=== PATIENT | female | born 1970 | race Two or more races ===

== ENCOUNTER 2024-11-28 15:37 | Emergency (ER) | payer MEDICAID, SELFPAY ==
[2024-11-28 15:37] VITALS: BMI 28.8
[2024-11-28 15:51] VITALS: BP 158/96; PULSE 82; RESP 18; TEMP 36.9; O2SAT 97
--- NOTE | 2024-11-28 15:59 | XR_ITS ---
EXAMINATION: Ankle, left 3 views . Technique: Ankle AP, oblique, lateral 3 views Date and time of exam: November 28, 2024 at 1633 hours INDICATIONS: Injury to the ankle today, ankle pain. FINDINGS: Prominent osteopenia No acute fracture No ankle dislocation IMPRESSION: No acute fracture
--- NOTE | 2024-11-28 16:04 | PD.EDLOWEX ---
Lower Extremity Injury RME/HPI General Chief Complaint: Extremity Injury, Lower Stated Complaint: Right ankle pain Time Seen by Provider: 11/28/24 16:11 Source: patient Arrival date/time: 11/28/24 15:37 54-year-old female with no known medical history presents to the emergency room with a chief complaint of pain and tenderness to the right ankle after hitting it against a toy 1 hour ago Mode of arrival: ambulatory Limitations: no limitations Related Data Home Medications ?Medication ?Instructions ?Recorded ?Confirmed montelukast 10 mg tablet 10 mg PO QPM 08/18/19 01/03/24 (Singulair) hydrochlorothiazide 25 mg tablet 25 mg PO QDAY 12/25/23 01/03/24 loratadine 10 mg tablet 10 mg PO QDAY 12/25/23 01/03/24 Previous Rx's ?Medication ?Instructions ?Recorded inhalational spacing device #1 ea 07/24/19 (Aerochamber MV spacer) acetaminophen 325 mg capsule 650 mg (2 x 325 mg) PO QID PRN 09/18/21 (Tylenol) fever or pain #30 caps albuterol sulfate 90 mcg/actuation 2 puff inhalation Q6H PRN cough / 10/12/22 aerosol inhaler wheezing #6.7 grams inhalational spacing device #1 ea 10/12/22 (Aerochamber MV spacer) hydroxyzine HCl 25 mg tablet 25 mg PO BID PRN anxiety #14 tabs 10/13/22 doxycycline hyclate 100 mg capsule 100 mg PO BID #14 caps 12/25/23 cephalexin 500 mg capsule 500 mg PO QID #28 caps 01/04/24 Allergies Allergy/AdvReac Type Severity Reaction Status Date / Time ibuprofen Allergy Severe rash Verified 10/12/22 12:38 tramadol Allergy Severe rash Verified 10/12/22 12:38 acetaminophen (From Tylenol) Allergy Rash Verified 01/03/24 20:24 Review of Systems Review of Systems Systems Reviewed: All systems reviewed, normal except as documented Constitutional Constitutional: Reports system reviewed and no additional complaints, except as documented, Denies fatigue, Denies fever(s), Denies headache(s) and Denies weakness Eyes Eyes: Reports system reviewed and no additional complaints, except as documented, Denies blurry vision and Denies change in vision ENT Ears, Nose, Mouth, and Throat: Reports system reviewed and no additional complaints, except as documented, Denies otalgia, Denies headache(s), Denies nasal congestion, Denies throat swelling and Denies vertigo Cardiovascular Cardiovascular: Reports system reviewed and no additional complaints, except as documented, Denies chest pain, Denies dyspnea and Denies dyspnea on exertion Respiratory Respiratory: Reports system reviewed and no additional complaints, except as documented, Denies chest congestion, Denies cough, Denies dyspnea, Denies dyspnea on exertion and Denies wheezing Gastrointestinal Gastrointestinal: Reports system reviewed and no additional complaints, except as documented, Denies abdominal pain, Denies cramping, Denies nausea and Denies vomiting Genitourinary Genitourinary: Reports system reviewed and no additional complaints, except as documented Musculoskeletal Musculoskeletal: Reports system reviewed and no additional complaints, except as documented, Reports abnormal gait, Reports arthralgias and Denies back pain Integumentary/Breasts Skin/Breast: Reports system reviewed and no additional complaints, except as documented and Denies wounds Neurologic Neurologic: Reports system reviewed and no additional complaints, except as documented, Reports abnormal gait, Denies confusion, Denies headache(s), Denies lack of coordination, Denies vertigo and Denies weakness Psychiatric Psychiatric: Reports system reviewed and no additional complaints, except as documented, Denies anxiety, Denies confusion, Denies depression, Denies paranoia, Denies suicidal ideation and Denies tactile hallucinations Endocrine Endocrine: Reports system reviewed and no additional complaints, except as documented and Denies fatigue Hematologic/Lymphatic Hematologic/Lymphatic: Reports system reviewed and no additional complaints, except as documented and Denies lymphadenopathy Allergic/Immunologic Allergic/Immunologic: Reports system reviewed and no additional complaints, except as documented, Denies throat swelling, Denies urticaria and Denies wheezing Past Medical History Past Medical History CARDIAC: Positive Hypertension; Negative Cardiac Disorders or Congestive Heart Failure RESPIRATORY: Positive Asthma; Negative Chronic Obstructive Pulmonary Disease (COPD) GENITOURINARY: Negative Renal Disease ENDOCRINE: Negative Diabetes Mellitus Type 1 or Diabetes Mellitus Type 2 HEMATOLOGIC: Negative Sickle Cell Disease PSYCHO/SOCIAL: Positive Anxiety Surgical History SURGICAL: Positive Tubal Ligation Social History SMOKING STATUS: Never smoker ED Exam General Limitations: Present no limitations General appearance: Present alert and in no apparent distress Head Head exam: Present atraumatic Eye Eye exam: Present normal appearance, PERRL and EOMI ENT ENT exam: Present normal exam, normal oropharynx and mucous membranes moist Neck Neck exam: Present normal inspection, full ROM and trachea midline Chest Chest inspection: Present normal inspection and symmetric chest wall rise Respiratory Respiratory exam: Present normal lung sounds bilaterally Cardiovascular Cardiovascular exam: Present regular rate, normal rhythm and normal heart sounds Abdominal Exam Abdominal exam: Present soft and normal bowel sounds Extremities Exam Extremities exam: Present normal inspection and full ROM Expanded Lower Extremity Exam Hip/Pelvis exam: Present normal inspection Upper leg exam: Present normal inspection Knee exam: Present normal inspection Lower leg exam: Present normal inspection Ankle exam: Present tenderness and swelling Foot/toe exam: Present normal inspection Gait: observed and normal Back Exam Back exam: Present normal inspection and full ROM Neurological Exam Neurological exam: Present alert, oriented X3 and CN II-XII intact Psychiatric Psychiatric exam: Present normal affect and normal mood Skin Skin exam: Present warm, dry, intact and normal color Course Quality Measures none Orders Category Date Time Status XR ankle comp LT min 3V Stat Exams 11/28/24 15:59 Completed Vital Signs Vital signs: Vital Signs Temperature 98.4 F 11/28/24 15:51 Pulse Rate 82 11/28/24 15:51 Respiratory Rate 18 11/28/24 15:51 Blood Pressure 158/96 H 11/28/24 15:51 Pulse Oximetry (%) 97 11/28/24 15:51 Oxygen Delivery Method Room Air 11/28/24 15:51 O2 saturation 97% within normal limits Extremity Injury, Lower MDM Narrative MDM Narrative:: 54-year-old female with no known medical history presents to the emergency room with a chief complaint of pain and tenderness to the right ankle after hitting it against a toy 1 hour ago Patient is hemodynamically stable and in no apparent distress Physical examination shows tenderness and mild swelling to the right ankle. X-ray of the right ankle was completed and was negative for any acute fracture or dislocation Patient was discharged and educated to follow-up with primary care provider in the next 24 to 48 hours and return to the emergency room for any evidence of worsening signs or symptoms Patient data External records reviewed:: [facility] previous records Clinical information provided by:: patient Social determinants that could affect healthcare access:: none Patient has the following chronic illnesses:: No chronic illness How is presenting disease/condition affected by chronic disease/condition?: no chronic disease Evaluation data The following diagnostics were reviewed and interpreted by me:: lab results and radiology exam(s) Lab and/or radiology exams considered but not ordered:: Labs and radiology exams considered and ordered Interpretation Summary: Ankle x-ray-no acute fracture or dislocation Medications / Prescriptions Medications or Prescriptions considered but not ordered:: No medication given Medication administrations:: No medication given Consultations Consultation(s) initiated? (list below): No Diagnosis Extremity Injury, Lower Differential Diagnosis: ankle sprain and strain and ankle fracture Most likely diagnosis given after review of the tests above:: Ankle sprain and strain Admission Indicated Admission indicated?: not indicated Admission Request Was there a request for admission?: No Disposition Plan Disposition Plan: Discharge Discharge Attestation Discharge Attestation: The patient and all family members were given an opportunity to ask questions and understood the discharge instructions. Discharge instructions specifically effects, indications for sooner follow up or return to the emergency department, and the expected course of current diagnosis. Patient condition: Stable Discharge Plan Plan Patient Disposition: HOME (Self Care) Disposition Comment: Stable Prescriptions/Referrals Prescriptions/Med Rec: No Action montelukast [Singulair] 10 mg tablet 10 mg PO QPM (DME) Aerochamber MV spacer See Dose Instructions .ROUTE .MEDSUPPLY Qty: 1 0RF Dose Instruction: As directed Rx Instructions: As directed acetaminophen [Tylenol] 325 mg capsule 650 mg PO QID PRN (Reason: fever or pain) Qty: 30 0RF cephalexin 500 mg capsule 500 mg PO QID Qty: 28 0RF albuterol sulfate 90 mcg/actuation HFA aerosol inhaler 2 puff INH Q6H PRN (Reason: cough / wheezing ) Qty: 6.7 0RF Rx Instructions: administer with spacer (DME) Aerochamber MV Spacer See Dose Instructions .ROUTE .MEDSUPPLY Qty: 1 0RF Dose Instruction: As directed Rx Instructions: As directed hydroxyzine HCl 25 mg tablet 25 mg PO BID PRN (Reason: anxiety) Qty: 14 0RF Rx Instructions: do not take medications and drive hydrochlorothiazide 25 mg Tablet 25 mg PO QDAY loratadine 10 mg Tablet 10 mg PO QDAY doxycycline hyclate 100 mg capsule 100 mg PO BID Qty: 14 0RF Referrals: No Primary/Family,Physician [Primary Care Provider] - In 1 week Problem List Clinical Impression: Ankle sprain and strain Patient/Caregiver Discharge Instructions Additional Instructions: Please follow-up with your primary care provider in the next 24 to 48 hours. X-ray of your ankle was completed and was negative for any acute fracture or dislocation For any evidence of worsening signs or symptoms return to the emergency room immediately Print Language: Tajik Stand Alone Forms: [employer]al Award Info., Patient Portal Info Letter PA/HAIRSPRING ADJUSTER Supervising Physician PA/ERIK Supervising Physician: Dr Ambrose
== END 2024-11-28 17:03 | disposition home or self-care (01) ==
PROVIDERS: Emergency Provider Emergency Medicine
DX: S93.402A Sprain of unspecified ligament of left ankle, initial encounter (principal); S96.912A Strain of unspecified muscle and tendon at ankle and foot level, left foot, initial encounter; W22.8XXA Striking against or struck by other objects, initial encounter
CPT/HCPCS: 73610; 99283

== ENCOUNTER 2024-12-07 13:31 | Emergency (ER) | payer MEDICAID, SELFPAY ==
[2024-12-07 13:32] VITALS: BMI 28.8
[2024-12-07 13:49] VITALS: BP 154/84; PULSE 89; RESP 19; TEMP 37.2; O2SAT 97
--- NOTE | 2024-12-07 13:59 | EKG_ITS ---
[facility] Test Date: 2024-12-07 Pat Name: ESTRELLA MCCOY Department: Room: - Gender: Female [employer]: : 1970 Requested By: Camilo Lainez Order Number: [id number] Reading MD: Camilo Lainez Measurements Intervals [place] Rate: 93 P: 41 [place]: 118 QRS: 29 QRSD: 84 T: 7 QT: 335 QTc: 417 Interpretive Statements SINUS RHYTHM WITH SHORT [place] INTERVAL MINIMAL ST DEPRESSION [0.025+ mV ST DEPRESSION] Compared to ECG 02/18/2019 12:00:46 ST (T wave) deviation now present Sinus tachycardia no longer present T-wave abnormality no longer present /store/[id number].pdf
--- NOTE | 2024-12-07 13:59 | XR_ITS ---
Examination: Abdomen sonogram, Limited Date and time of exam: December 07, 2024 1428 hours INDICATIONS: Abdomen sonogram August 19, 2019 cystic mass anterior to the pancreatic head 3.8 x 2.3 cm Technique: Real-time neri scale transabdominal sonographic images of the upper abdomen obtained. Findings: Normal gallbladder Normal common bile duct 0.3 cm Pancreatic head 2.3 cm Solid appearing mass anterior body of the pancreas 1.4 x 1.1 x 1.0 cm Liver 16 cm fatty infiltration focal probable fatty sparing 18 mm adjacent to the gallbladder Normal hepatopedal portal venous flow Patent IVC IMPRESSION: Recommend MRCP, MRI abdomen pre and post contrast follow-up to assess solid appearing mass anterior body of the pancreas described above
--- NOTE | 2024-12-07 14:00 | PD.EDRME ---
Rapid Medical Screening Exam [facility] Arrival date/time: 12/07/24 13:31 54-year-old female with no known medical history presents to the emergency room with a chief complaint of right upper quadrant abdominal pain, right sided chest pain x 1 day. Patient denies any nausea vomiting or fever. I have greeted and performed a focused initial assessment of this patient. A comprehensive ED assessment and evaluation of the patient, analysis of all test results, and completion of the medical decision making process will be conducted by additional ED providers. Chief Complaint: Abdominal Pain Vital signs: Vital Signs Temperature 99.0 F 12/07/24 13:49 Pulse Rate 89 12/07/24 13:49 Respiratory Rate 19 12/07/24 13:49 Blood Pressure 154/84 H 12/07/24 13:49 Pulse Oximetry (%) 97 12/07/24 13:49 Oxygen Delivery Method Room Air 12/07/24 13:49 Vital signs reviewed by provider: Yes
[2024-12-07 14:18] LABS: Basophils % (Auto) 0 % (0-2.5); Eosinophils # (Auto) 0.3 Thou/mm3 (0.0-0.5); Eosinophils % (Auto) 3 % (0-10); Hematocrit 40.3 % (36.0-46.0); Hemoglobin 13.9 g/dL (12.0-16.0); Immature Granulocytes % (Auto) 0 % (0-0); Immature Granulocytes Auto 0.03 Thou/mm3 (0.00-0.00); Lymphocytes # (Auto) 2.1 Thou/mm3 (1.0-4.8); Lymphocytes % (Auto) 23 % (10-50); Mean Corpuscular HGB Conc 34.5 g/dl (31.0-37.0); Mean Corpuscular Hemoglobin 30.3 pg (25.0-35.0); Mean Corpuscular Volume 88 fL (80-100); Monocytes # (Auto) 0.4 Thou/mm3 (0.0-0.8); Monocytes % (Auto) 5 % (0-12); Neutrophils # (Auto) 6.1 Thou/mm3 (1.8-7.7); Neutrophils % (Auto) 69 % (37-80); Nucleated Red Blood Cell % 0 /100 WBC (0); Platelet Count 286 Thou/mm3 (140-440); RDW Standard Deviation 41.1 fL (36.4-46.3); Red Blood Count 4.59 Miln/mm3 (4.00-5.20); White Blood Count 8.9 Thou/mm3 (3.6-11.0)
[2024-12-07 14:35] LABS: B-Type Natriuretic Peptide < 20 pg/mL (0-100)
[2024-12-07 14:37] LABS: Alanine Aminotransferase 17 U/L (10-49); Albumin, Serum 4.3 gm/dL (3.5-5.0); Albumin/Globulin Ratio 1.4 (1.2-2.2); Alkaline Phosphatase 63 U/L (46-116); Anion Gap 8 (7-16); Aspartate Amino Transferase 19 U/L (0-34); BUN/Creatinine Ratio 14 Ratio (12-20); Bilirubin,Total 0.4 mg/dL (0.3-1.2); Blood Urea Nitrogen 11 mg/dL (9-23); Calcium 9.3 mg/dL (8.3-10.6); Calcium (Corrected) 9.3 mg/dL (8.5-10.1); Chloride 102 mMol/L (98-107); Creatinine (Component) 0.8 mg/dL (0.6-1.3); Estimated Creatinine Clearance 75.6 mL/min (>60); Globulin 3.1 gm/dL (2.3-3.5); Glucose 144 mg/dL (74-106); Magnesium 1.8 mg/dL (1.6-2.6); Osmolality,Calculated 281 (275-295); Potassium 3.6 mMol/L (3.4-5.1); Sodium 140 mMol/L (136-145); Total Protein 7.4 gm/dL (5.7-8.2); Troponin I < 0.002 ng/mL (0.0-0.045); eGFR > 60 See Note
[2024-12-07 17:21] VITALS: BP 124/78; PULSE 88
--- NOTE | 2024-12-07 17:29 | PD.EDADULT ---
ED General RME/HPI General Chief complaint: Abdominal Pain Stated complaint: Right upper abdominal pain x 1 day Time Seen by Provider: 12/07/24 17:25 Arrival date/time: 12/07/24 13:31 CC: Right upper quadrant abdominal pain onset 24 hours ago. Currently the pain is gone. Patient denies any nausea vomiting headache shortness of breath difficulty breathing diarrhea. No left upper quadrant epigastric pain or lower abdominal pain. No prior history of similar events. Does not take any daily medications. RME / HPI RME / HPI narrative: 12/07/24 13:31 54-year-old female with no known medical history presents to the emergency room with a chief complaint of right upper quadrant abdominal pain, right sided chest pain x 1 day. Patient denies any nausea vomiting or fever. I have greeted and performed a focused initial assessment of this patient. A comprehensive ED assessment and evaluation of the patient, analysis of all test results, and completion of the medical decision making process will be conducted by additional ED providers. Related Data Home Medications ?Medication ?Instructions ?Recorded ?Confirmed montelukast 10 mg tablet 10 mg PO QPM 08/18/19 01/03/24 (Singulair) hydrochlorothiazide 25 mg tablet 25 mg PO QDAY 12/25/23 01/03/24 loratadine 10 mg tablet 10 mg PO QDAY 12/25/23 01/03/24 Previous Rx's ?Medication ?Instructions ?Recorded inhalational spacing device #1 ea 07/24/19 (Aerochamber MV spacer) acetaminophen 325 mg capsule 650 mg (2 x 325 mg) PO QID PRN 09/18/21 (Tylenol) fever or pain #30 caps albuterol sulfate 90 mcg/actuation 2 puff inhalation Q6H PRN cough / 10/12/22 aerosol inhaler wheezing #6.7 grams inhalational spacing device #1 ea 10/12/22 (Aerochamber MV spacer) hydroxyzine HCl 25 mg tablet 25 mg PO BID PRN anxiety #14 tabs 10/13/22 doxycycline hyclate 100 mg capsule 100 mg PO BID #14 caps 12/25/23 cephalexin 500 mg capsule 500 mg PO QID #28 caps 01/04/24 Allergies Allergy/AdvReac Type Severity Reaction Status Date / Time ibuprofen Allergy Severe rash Verified 10/12/22 12:38 tramadol Allergy Severe rash Verified 10/12/22 12:38 acetaminophen (From Tylenol) Allergy Rash Verified 01/03/24 20:24 Review of Systems Review of Systems Narrative Review of Systems: GEN: No fever, no chills, no weight loss EYES: No discharge, no visual changes, no pain HEENT: No ear pain, no congestion, no sore throat PULM: No shortness of breath, no cough, no congestion CV: No chest pain, no dyspnea on exertion, no palpitations GI: No nausea, no vomiting, no diarrhea, + pain, no constipation : No frequency, no urgency, no dysuria MUSC/SKEL: No joint pain, no back pain SKIN: No rash PSYCH: No hallucinations, no depression HEME/LYMPH: No easy bleeding or bruising tendencies NEURO: No weakness, no headache Past Medical History Past Medical History CARDIAC: Positive Hypertension; Negative Cardiac Disorders or Congestive Heart Failure RESPIRATORY: Positive Asthma; Negative Chronic Obstructive Pulmonary Disease (COPD) GENITOURINARY: Negative Renal Disease ENDOCRINE: Negative Diabetes Mellitus Type 1 or Diabetes Mellitus Type 2 HEMATOLOGIC: Negative Sickle Cell Disease PSYCHO/SOCIAL: Positive Anxiety Surgical History SURGICAL: Positive Tubal Ligation Social History SMOKING STATUS: Never smoker ED Exam Narrative Physical exam: [General: Not in any acute distress Head normocephalic HEENT: Within acceptable limits Neck is supple nontender Chest equal chest rise nontender to palpation Respiratory: Clear to auscultation no wheezes crackles or rubs CV: Rate rhythm is regular no murmurs rubs or clicks Abdomen is distended secondary to body habitus soft nontender in all 4 quads including the epigastrium. This includes with deep palpation no reflexive guarding or rebound tenderness. Back: No CVA tenderness no spinous process tenderness from cervical spine thoracic and lumbar spine Skin: Intact no petechiae rash induration ulceration or crepitus Extremities: Moving all extremity against resistance cap refill less than 2 seconds neurosensory intact Neuro: Awake alert oriented x3 Glascow coma 15 no focal deficits] Course Quality Measures none Orders Category Date Time Status EKG (ED ONLY) *Do not use* NOW Care 12/07/24 13:59 Completed EKG (ED Only) Stat Exams 12/07/24 13:59 Draft US gall bladder Stat Exams 12/07/24 13:59 Completed B-Type Natriuretic Peptide Stat Lab 12/07/24 14:05 Completed CBC Stat Lab 12/07/24 14:05 Completed Comprehensive Metabolic Panel Stat Lab 12/07/24 14:05 Completed Lipase Stat Lab 12/07/24 14:05 Completed Magnesium Stat Lab 12/07/24 14:05 Completed Troponin I Stat Lab 12/07/24 14:05 Completed Vital Signs Vital signs: Vital Signs Temperature 99.0 F 12/07/24 13:49 Pulse Rate 89 12/07/24 13:49 Respiratory Rate 19 12/07/24 13:49 Blood Pressure 154/84 H 12/07/24 13:49 Pulse Oximetry (%) 97 12/07/24 13:49 Oxygen Delivery Method Room Air 12/07/24 13:49 MDM Patient data External records reviewed:: [facility] previous records Clinical information provided by:: patient Social determinants that could affect healthcare access:: none Patient has the following chronic illnesses:: None How is presenting disease/condition affected by chronic disease/condition?: uneffected by Evaluation data The following diagnostics were reviewed and interpreted by me:: lab results and radiology exam(s) Lab and/or radiology exams considered but not ordered:: CBC shows no acute leukocytosis anemia thrombocytopenia CMP shows no acute electrolyte imbalances renal impairment transaminitis or T. bili elevation EKG performed at 1413 shows a ventricular rate of 93 CT interval 118 QRS of 8 4 QTc of 386 is sinus rhythm. Ultrasound of the gall bladder shows gallbladder is normal however there is a pancreatic mass. Interpretation Summary: Patient is advised of the pancreatic mass and is recommended an outpatient MRCP. The patient is afebrile nontoxic-appearing with normal vital signs this patient can be done on outpatient basis. Patient advised if there is worsening of symptoms including epigastric or left upper quadrant pain to return immediately to the emergency room for reevaluation. Medications Medications considered but not ordered:: None Medication administrations:: None Consultations Consultation(s) initiated? (list below): No Diagnosis Differential Diagnosis ED Complaint MDM: Cholelithiasis cholecystitis choledocholithiasis Most likely diagnosis given after review of the tests above:: Right upper quadrant abdominal pain Admission Indicated Admission indicated?: not indicated Explain why admission is indicated or not indicated:: Stable for discharge Admission Request Was there a request for admission?: No Disposition Plan Disposition Plan: Discharge Discharge Attestation Discharge Attestation: The patient and all family members were given an opportunity to ask questions and understood the discharge instructions. Discharge instructions specifically effects, indications for sooner follow up or return to the emergency department, and the expected course of current diagnosis. Patient condition: Stable Medical Decision Making Differential Diagnosis Differential Diagnosis: Cholelithiasis cholecystitis choledocholithiasis Lab Data 12/07/24 14:05 12/07/24 14:05 Labs: Lab Results 12/07/24 Range/Units 14:05 WBC 8.9 (3.6-11.0) Thou/mm3 RBC 4.59 (4.00-5.20) Miln/mm3 Hgb 13.9 (12.0-16.0) g/dL Hct 40.3 (36.0-46.0) % MCV 88 (80-100) fL MCH 30.3 (25.0-35.0) pg MCHC 34.5 (31.0-37.0) g/dl RDW Std Deviation 41.1 (36.4-46.3) fL Plt Count 286 (140-440) Thou/mm3 Neut % (Auto) 69 (37-80) % Lymph % (Auto) 23 (10-50) % [place]lee % (Auto) 5 (0-12) % Eos % (Auto) 3 (0-10) % Baso % (Auto) 0 (0-2.5) % Neut # (Auto) 6.1 (1.8-7.7) Thou/mm3 Lymph # (Auto) 2.1 (1.0-4.8) Thou/mm3 Greenlee # (Auto) 0.4 (0.0-0.8) Thou/mm3 Eos # (Auto) 0.3 (0.0-0.5) Thou/mm3 Baso # (Auto) 0.0 (0.0-0.2) Thou/mm3 Immature Gran # (Auto) 0.03 H (0.00-0.00) Thou/mm3 Absolute Nucleated RBC 0.00 (0.00-0.00) Thou/mm3 Immature Gran % 0 (0-0) % Nucleated RBC % 0 (0) /100 WBC Sodium 140 (136-145) mMol/L Potassium 3.6 (3.4-5.1) mMol/L Chloride 102 (98-107) mMol/L Carbon Dioxide 30.0 (20.0-31.0) mMol/L Anion Gap 8 (7-16) BUN 11 (9-23) mg/dL Creatinine 0.8 (0.6-1.3) mg/dL Estim Creat Clear Calc 75.6 (>60) mL/min eGFR > 60 (60 - ) See Note BUN/Creatinine Ratio 14 (12-20) Ratio Glucose 144 H (74-106) mg/dL Calculated Osmolality 281 (275-295) Calcium 9.3 (8.3-10.6) mg/dL Corrected Calcium 9.3 (8.5-10.1) mg/dL Magnesium 1.8 (1.6-2.6) mg/dL Total Bilirubin 0.4 (0.3-1.2) mg/dL AST 19 (0-34) U/L ALT 17 (10-49) U/L Alkaline Phosphatase 63 (46-116) U/L Troponin I < 0.002 (0.0-0.045) ng/mL B-Natriuretic Peptide < 20 (0-100) pg/mL Total Protein 7.4 (5.7-8.2) gm/dL Albumin 4.3 (3.5-5.0) gm/dL Globulin 3.1 (2.3-3.5) gm/dL Albumin/Globulin Ratio 1.4 (1.2-2.2) Lipase 28 (12-53) U/L Discharge Plan Plan Patient Disposition: HOME (Self Care) Patient condition on transfer: Stable Prescriptions/Referrals Prescriptions/Med Rec: No Action montelukast [Singulair] 10 mg tablet 10 mg PO QPM (DME) Aerochamber MV spacer See Dose Instructions .ROUTE .MEDSUPPLY Qty: 1 0RF Dose Instruction: As directed Rx Instructions: As directed acetaminophen [Tylenol] 325 mg capsule 650 mg PO QID PRN (Reason: fever or pain) Qty: 30 0RF cephalexin 500 mg capsule 500 mg PO QID Qty: 28 0RF albuterol sulfate 90 mcg/actuation HFA aerosol inhaler 2 puff INH Q6H PRN (Reason: cough / wheezing ) Qty: 6.7 0RF Rx Instructions: administer with spacer (DME) Aerochamber MV Spacer See Dose Instructions .ROUTE .MEDSUPPLY Qty: 1 0RF Dose Instruction: As directed Rx Instructions: As directed hydroxyzine HCl 25 mg tablet 25 mg PO BID PRN (Reason: anxiety) Qty: 14 0RF Rx Instructions: do not take medications and drive hydrochlorothiazide 25 mg Tablet 25 mg PO QDAY loratadine 10 mg Tablet 10 mg PO QDAY doxycycline hyclate 100 mg capsule 100 mg PO BID Qty: 14 0RF Referrals: Josue Brown MD [Primary Care Provider] - In 1 week Problem List Clinical Impression: Right upper quadrant abdominal pain, Mass of pancreas Impression comment: Please follow-up with your primary care provider and you need an MRCP on an outpatient basis. If there is a worsening of pain or pain in the left upper quadrant return immediately to the emergency room for reevaluation. Patient/Caregiver Discharge Instructions Other Activity Instructions:: See spicy or fatty foods for the next 7 to 10 days. Take ibuprofen or Tylenol as needed. Please follow-up with your primary care provider you need an MR CP to determine what that pancreatic mass is that you have. Education Materials: Abdominal Pain Print Language: Ugandan Stand Alone Forms: [employer]al Award Info., Work/School Release, Patient Portal Info Letter OWEN/ERIK Supervising Physician OWEN/FARM EQUIPMENT MECHANIC APPRENTICE Supervising Physician: Javed Miller ENP
[2024-12-07 18:20] LABS: Lipase 28 U/L (12-53)
== END 2024-12-07 17:49 | disposition home or self-care (01) ==
PROVIDERS: Nurse Practitioner Family; Registered Nurse General Practice; Emergency Provider Emergency Medicine; PCP Family Medicine
DX: R10.11 Right upper quadrant pain (principal)
CPT/HCPCS: 36415; 76705; 80053; 83690; 83735; 83880; 84484; 85025; 93005; 99283

== ENCOUNTER 2025-02-22 11:52 | Emergency (ER) | payer MEDICAID, SELFPAY ==
[2025-02-22 12:06] VITALS: BP 167/86; PULSE 106; RESP 18; TEMP 38.1; O2SAT 97; BMI 28.8
--- NOTE | 2025-02-22 12:18 | XR_ITS ---
Examination: PA lateral chest 2 views TECHNIQUE: Upright PA lateral chest 2 views Date and time: February 22, 2025 1232 hours Comparison February 02, 2024 INDICATIONS: Coughing chest pain 3 days. FINDINGS: Normal heart size No lobar pneumonia or pulmonary edema The osseous structures are intact IMPRESSION: No pneumonia or pulmonary edema
--- NOTE | 2025-02-22 13:29 | PD.EDURI ---
Upper Respiratory Inf. RME/HPI General Chief Complaint: Shortness of Breath/Dyspnea Stated Complaint: SOB, vomiting, has asthma, cough X 3 days Time Seen by Provider: 02/22/25 12:17 Arrival date/time: 02/22/25 11:52 54-year-old female with multiple sick contacts at home presents emergency department today for complaints of cough, congestion runny nose and generalized bodyaches ongoing x 3 days Limitations: no limitations Related Data Home Medications ?Medication ?Instructions ?Recorded ?Confirmed montelukast 10 mg tablet 10 mg PO QPM 08/18/19 01/03/24 (Singulair) hydrochlorothiazide 25 mg tablet 25 mg PO QDAY 12/25/23 01/03/24 loratadine 10 mg tablet 10 mg PO QDAY 12/25/23 01/03/24 Previous Rx's ?Medication ?Instructions ?Recorded inhalational spacing device #1 ea 07/24/19 (Aerochamber MV spacer) acetaminophen 325 mg capsule 650 mg (2 x 325 mg) PO QID PRN 09/18/21 (Tylenol) fever or pain #30 caps albuterol sulfate 90 mcg/actuation 2 puff inhalation Q6H PRN cough / 10/12/22 aerosol inhaler wheezing #6.7 grams inhalational spacing device #1 ea 10/12/22 (Aerochamber MV spacer) hydroxyzine HCl 25 mg tablet 25 mg PO BID PRN anxiety #14 tabs 10/13/22 doxycycline hyclate 100 mg capsule 100 mg PO BID #14 caps 12/25/23 cephalexin 500 mg capsule 500 mg PO QID #28 caps 01/04/24 albuterol sulfate 90 mcg/actuation 2 puff inhalation Q6H PRN 02/22/25 aerosol inhaler (Ventolin HFA) shortness of breath or wheezing #8.5 grams benzonatate 100 mg capsule 100 mg PO TID #14 caps 02/22/25 prednisone 20 mg tablet 20 mg PO BID 3 days #6 tabs 02/22/25 Allergies Allergy/AdvReac Type Severity Reaction Status Date / Time ibuprofen Allergy Severe rash Verified 02/22/25 11:56 tramadol Allergy Severe rash Verified 02/22/25 11:56 acetaminophen (From Tylenol) Allergy Rash Verified 02/22/25 11:56 Review of Systems Review of Systems Systems Reviewed: All systems reviewed, normal except as documented Constitutional Constitutional: Reports system reviewed and no additional complaints, except as documented, Reports body ache(s), Reports chills, Reports fever(s) and Reports headache(s) Eyes Eyes: Reports system reviewed and no additional complaints, except as documented and Denies blurry vision ENT Ears, Nose, Mouth, and Throat: Reports system reviewed and no additional complaints, except as documented, Reports headache(s), Reports nasal congestion and Reports nasal discharge Cardiovascular Cardiovascular: Reports system reviewed and no additional complaints, except as documented, Denies chest pain and Denies dyspnea Respiratory Respiratory: Reports system reviewed and no additional complaints, except as documented, Reports chest congestion, Reports cough and Denies dyspnea Gastrointestinal Gastrointestinal: Reports system reviewed and no additional complaints, except as documented and Denies abdominal pain Genitourinary Genitourinary: Reports system reviewed and no additional complaints, except as documented and Reports as per HPI Integumentary/Breasts Skin/Breast: Reports system reviewed and no additional complaints, except as documented and Denies rash Neurologic Neurologic: Reports system reviewed and no additional complaints, except as documented, Reports as per HPI and Reports headache(s) Past Medical History Past Medical History CARDIAC: Positive Hypertension; Negative Cardiac Disorders or Congestive Heart Failure RESPIRATORY: Positive Asthma; Negative Chronic Obstructive Pulmonary Disease (COPD) GENITOURINARY: Negative Renal Disease ENDOCRINE: Negative Diabetes Mellitus Type 1 or Diabetes Mellitus Type 2 HEMATOLOGIC: Negative Sickle Cell Disease PSYCHO/SOCIAL: Positive Anxiety Surgical History SURGICAL: Positive Tubal Ligation Social History SMOKING STATUS: Never smoker ED Exam General Limitations: Present no limitations General appearance: Present alert and in no apparent distress Head Head exam: Present atraumatic, normocephalic and normal inspection Eye Eye exam: Present normal appearance, PERRL and EOMI; Absent conjunctival injection ENT ENT exam: Present normal exam, normal oropharynx and mucous membranes moist Neck Neck exam: Present normal inspection, full ROM and trachea midline Chest Chest inspection: Present normal inspection and symmetric chest wall rise Respiratory Respiratory exam: Present normal lung sounds bilaterally; Absent respiratory distress Cardiovascular Cardiovascular exam: Present regular rate, normal rhythm and normal heart sounds Abdominal Exam Abdominal exam: Present soft and normal bowel sounds; Absent distention, tenderness, guarding, rebound or rigidity Extremities Exam Extremities exam: Present normal inspection and full ROM Back Exam Back exam: Present normal inspection and full ROM Neurological Exam Neurological exam: Present alert, oriented X3 and CN II-XII intact Psychiatric Psychiatric exam: Present normal affect and normal mood Skin Skin exam: Present warm, dry, intact and normal color Course Quality Measures none Orders Category Date Time Status Bedside Influenza A&B Antigen Test NOW Care 02/22/25 12:18 Completed XR chest 2V Stat Exams 02/22/25 12:18 Completed Ibuprofen Tab [Motrin Tab] Med 02/22/25 12:18 Discontinued 800 mg PO X1 ONE Vital Signs Vital signs: Vital Signs Temperature 100.5 F H 02/22/25 12:06 Pulse Rate 106 H 02/22/25 12:06 Respiratory Rate 18 02/22/25 12:06 Blood Pressure 167/86 H 02/22/25 12:06 Pulse Oximetry (%) 97 02/22/25 12:06 Oxygen Delivery Method Room Air 02/22/25 12:06 O2 saturation 97% room air within normal Upper Respiratory Infection MDM Narrative MDM Narrative:: 54-year-old female with multiple sick contacts at home presents emergency department today for complaints of cough, congestion runny nose and generalized bodyaches ongoing x 3 days On exam patient well-appearing patient does not appear ill or toxic in no acute distress Chest x-ray obtained no acute emergent findings noted Patient checked for influenza which came back negative Symptoms highly consistent with viral illness Patient declined ibuprofen and Tylenol Patient discharged home in no distress to follow-up with primary care doctor in the next 24 to 48 hours and for any worsening symptoms to return to the ER immediately Patient data External records reviewed:: [facility] previous records Clinical information provided by:: patient Social determinants that could affect healthcare access:: none Patient has the following chronic illnesses:: See history How is presenting disease/condition affected by chronic disease/condition?: exacerbated by Evaluation data The following diagnostics were reviewed and interpreted by me:: lab results and radiology exam(s) Lab and/or radiology exams considered but not ordered:: Labs and radiology obtain Interpretation Summary: Reviewed by me Medications / Prescriptions Medications or Prescriptions considered but not ordered:: Given Medication administrations:: Medication Administration History Discontinued Medications Ibuprofen (Ibuprofen Tab 400 Mg Tablet) 800 mg PO X1 ONE Stop: 02/22/25 12:19 Last Admin: 02/22/25 13:39 Dose: Not Given Documented By: ER Non-Admin Reason: Patient Refused Given Consultations Consultation(s) initiated? (list below): No Diagnosis Upper Respiratory Differential Diagnosis: upper respiratory infection, viral infection and bronchitis Most likely diagnosis given after review of the tests above:: URI Admission Indicated Admission indicated?: not indicated Admission Request Was there a request for admission?: No Disposition Plan Disposition Plan: Discharge Discharge Attestation Discharge Attestation: The patient and all family members were given an opportunity to ask questions and understood the discharge instructions. Discharge instructions specifically effects, indications for sooner follow up or return to the emergency department, and the expected course of current diagnosis. Patient condition: Stable Discharge Plan Plan Patient Disposition: HOME (Self Care) Discharge Disposition comment: Stable Prescriptions/Referrals Prescriptions/Med Rec: New prednisone 20 mg tablet 20 mg PO BID 3 Days Qty: 6 0RF benzonatate 100 mg capsule 100 mg PO TID Qty: 14 0RF albuterol sulfate [Ventolin HFA] 90 mcg/actuation HFA aerosol inhaler 2 puff inhalation Q6H PRN (Reason: shortness of breath or wheezing) Qty: 8.5 0RF No Action montelukast [Singulair] 10 mg tablet 10 mg PO QPM (DME) Aerochamber MV spacer See Dose Instructions .ROUTE .MEDSUPPLY Qty: 1 0RF Dose Instruction: As directed Rx Instructions: As directed acetaminophen [Tylenol] 325 mg capsule 650 mg PO QID PRN (Reason: fever or pain) Qty: 30 0RF cephalexin 500 mg capsule 500 mg PO QID Qty: 28 0RF albuterol sulfate 90 mcg/actuation HFA aerosol inhaler 2 puff INH Q6H PRN (Reason: cough / wheezing ) Qty: 6.7 0RF Rx Instructions: administer with spacer (DME) Aerochamber MV Spacer See Dose Instructions .ROUTE .MEDSUPPLY Qty: 1 0RF Dose Instruction: As directed Rx Instructions: As directed hydroxyzine HCl 25 mg tablet 25 mg PO BID PRN (Reason: anxiety) Qty: 14 0RF Rx Instructions: do not take medications and drive hydrochlorothiazide 25 mg Tablet 25 mg PO QDAY loratadine 10 mg Tablet 10 mg PO QDAY doxycycline hyclate 100 mg capsule 100 mg PO BID Qty: 14 0RF Referrals: Roel Bella PA-C [Primary Care Provider] - In 1 week Problem List Clinical Impression: Acute upper respiratory infection Patient/Caregiver Discharge Instructions Education Materials: Preventing Common Respiratory ... Additional Instructions: Please follow up with your primary care doctor in the next 24-48hrs for any worsening symptoms return here immediately Print Language: Belarusian Stand Alone Forms: [employer] Work/School Release, Patient Portal Info Letter PA/DISTILLERY SUPERVISOR Supervising Physician PA/DISTILLERY SUPERVISOR Supervising Physician: Dr blackwell
== END 2025-02-22 15:17 | disposition home or self-care (01) ==
PROVIDERS: Emergency Provider Emergency Medicine; PCP Physician Assistant
DX: J06.9 Acute upper respiratory infection, unspecified (principal)
CPT/HCPCS: 71046; 87400; 99283

== ENCOUNTER 2025-02-25 17:31 | Emergency (ER) | payer MEDICAID, SELFPAY ==
[2025-02-25 17:32] VITALS: BMI 28.8
[2025-02-25 17:52] VITALS: BP 155/83; PULSE 75; RESP 18; TEMP 37.4; O2SAT 96
--- NOTE | 2025-02-25 18:18 | PD.EDSOB ---
ED SOB =RME/HPI General Chief Complaint: Shortness of Breath/Dyspnea Stated Complaint: DIFFICULTY BREATHING Time Seen by Provider: 02/25/25 18:07 Arrival date/time: 02/25/25 17:31 RME / HPI RME / HPI Narrative: 54 year old female presents to the ED with a complaint of cough with white sputum. She denies fever or chills, ear pain or sore throat. She denies nausea or vomiting. She completed the course of prednisone but states the cough medication is not helping much. She was unable to orange picker the albuterol inhaler because it was not time for renewal. Related Data Home Medications ?Medication ?Instructions ?Recorded ?Confirmed montelukast 10 mg tablet 10 mg PO QPM 08/18/19 01/03/24 (Singulair) hydrochlorothiazide 25 mg tablet 25 mg PO QDAY 12/25/23 01/03/24 loratadine 10 mg tablet 10 mg PO QDAY 12/25/23 01/03/24 Previous Rx's ?Medication ?Instructions ?Recorded inhalational spacing device #1 ea 07/24/19 (Aerochamber MV spacer) acetaminophen 325 mg capsule 650 mg (2 x 325 mg) PO QID PRN 09/18/21 (Tylenol) fever or pain #30 caps albuterol sulfate 90 mcg/actuation 2 puff inhalation Q6H PRN cough / 10/12/22 aerosol inhaler wheezing #6.7 grams inhalational spacing device #1 ea 10/12/22 (Aerochamber MV spacer) hydroxyzine HCl 25 mg tablet 25 mg PO BID PRN anxiety #14 tabs 10/13/22 doxycycline hyclate 100 mg capsule 100 mg PO BID #14 caps 12/25/23 cephalexin 500 mg capsule 500 mg PO QID #28 caps 01/04/24 albuterol sulfate 90 mcg/actuation 2 puff inhalation Q6H PRN 02/22/25 aerosol inhaler (Ventolin HFA) shortness of breath or wheezing #8.5 grams benzonatate 100 mg capsule 100 mg PO TID #14 caps 02/22/25 oseltamivir 75 mg capsule (Tamiflu) 75 mg PO BID 5 days #10 caps 02/25/25 promethazine-DM 6.25 mg-15 mg/5 mL 10 ml PO Q6H PRN cough #118 mL 02/25/25 oral syrup Allergies Allergy/AdvReac Type Severity Reaction Status Date / Time ibuprofen Allergy Severe rash Verified 02/25/25 17:35 tramadol Allergy Severe rash Verified 02/25/25 17:35 acetaminophen (From Tylenol) Allergy Rash Verified 02/25/25 17:35 Review of Systems Review of Systems Systems Reviewed: All systems reviewed, normal except as documented Past Medical History Past Medical History CARDIAC: Positive Hypertension; Negative Cardiac Disorders or Congestive Heart Failure RESPIRATORY: Positive Asthma; Negative Chronic Obstructive Pulmonary Disease (COPD) GENITOURINARY: Negative Renal Disease ENDOCRINE: Negative Diabetes Mellitus Type 1 or Diabetes Mellitus Type 2 HEMATOLOGIC: Negative Sickle Cell Disease PSYCHO/SOCIAL: Positive Anxiety Surgical History SURGICAL: Positive Tubal Ligation Social History SMOKING STATUS: Never smoker ED Exam Narrative Physical exam: Alert and oriented 54-year-old female no acute respiratory distress. Vitals blood pressure 155/83, pulse 75, respirations 18 and nonlabored, temp 99.3, O2 sat 96% on room air. Lungs are diminished at the bases, regular rate and rhythm without murmurs. TMs and pharynx are without erythema. Nares are pale and boggy, no maxillary or frontal sinus tenderness. Neck is supple, no adenopathy. Moves all extremities well. Course Course Course Narrative: Patient was given DuoNeb 3 mL. Influenza swabs A and B are both positive. COVID swab is negative. Quality Measures none Orders Category Date Time Status COVID-19 Antigen (In-House) Stat Lab 02/25/25 19:05 Completed Influenza A & B Rapid Panel Stat Lab 02/25/25 18:22 Ordered Albuterol/Ipratr Rt Sinai [Duoneb Rt Sinai] Med 02/25/25 18:21 Discontinued 3 ml INH X1 ONE Vital Signs Vital signs: Vital Signs Temperature 99.3 F 02/25/25 17:52 Pulse Rate 75 02/25/25 17:52 Respiratory Rate 18 02/25/25 17:52 Blood Pressure 155/83 H 02/25/25 17:52 Pulse Oximetry (%) 96 02/25/25 17:52 Oxygen Delivery Method Room Air 02/25/25 17:52 Shortness of Breath / Dyspnea MDM Narrative MDM Narrative:: 54 year old female presents to the ED with a complaint of cough with white sputum. She denies fever or chills, ear pain or sore throat. She denies nausea or vomiting. She completed the course of prednisone but states the cough medication is not helping much. She was unable to orange picker the albuterol inhaler because it was not time for renewal. Alert and oriented 54-year-old female no acute respiratory distress. Vitals blood pressure 155/83, pulse 75, respirations 18 and nonlabored, temp 99.3, O2 sat 96% on room air. Lungs are diminished at the bases, regular rate and rhythm without murmurs. TMs and pharynx are without erythema. Nares are pale and boggy, no maxillary or frontal sinus tenderness. Neck is supple, no adenopathy. Moves all extremities well. Patient was given DuoNeb 3 mL. Influenza swabs A and B are both positive. COVID swab is negative. Patient data External records reviewed:: [facility] previous records Clinical information provided by:: patient Social determinants that could affect healthcare access:: none Patient has the following chronic illnesses:: N/A How is presenting disease/condition affected by chronic disease/condition?: no chronic disease Evaluation data The following diagnostics were reviewed and interpreted by me:: lab results Lab and/or radiology exams considered but not ordered:: N/A Interpretation Summary: Influenza swabs A and B are both positive. COVID swab is negative. Medications / Prescriptions Medications or Prescriptions considered but not ordered:: N/A Medication administrations:: Medication Administration History Discontinued Medications Albuterol/Ipratropium (Albuterol/Ipratropium (Duoneb) Rt Sinai 3 Ml Nebu) 3 ml INH X1 ONE Stop: 02/25/25 18:22 Last Admin: 02/25/25 18:31 Dose: 3 ml Documented By: CARMEN DuoNeb 3 mL given. Consultations Consultation(s) initiated? (list below): No Diagnosis Shortness of Breath Differential Diagnosis: community acquired pneumonia, asthma with exacerbation and other (COVID versus influenza A/B) Most likely diagnosis given after review of the tests above:: Influenza A/B positive. Admission Indicated Admission indicated?: not indicated Admission Request Was there a request for admission?: No Disposition Plan Disposition Plan: Discharge Discharge Attestation Discharge Attestation: The patient and all family members were given an opportunity to ask questions and understood the discharge instructions. Discharge instructions specifically effects, indications for sooner follow up or return to the emergency department, and the expected course of current diagnosis. Patient condition: Stable Discharge Plan Plan Patient Disposition: HOME (Self Care) Discharge Disposition comment: Stable and Improved Prescriptions/Referrals Prescriptions/Med Rec: New oseltamivir [Tamiflu] 75 mg capsule 75 mg PO BID 5 Days Qty: 10 0RF promethazine-DM 6.25-15 mg/5 mL syrup 10 ml PO Q6H PRN (Reason: cough) Qty: 118 0RF No Action montelukast [Singulair] 10 mg tablet 10 mg PO QPM (DME) Aerochamber MV spacer See Dose Instructions .ROUTE .MEDSUPPLY Qty: 1 0RF Dose Instruction: As directed Rx Instructions: As directed acetaminophen [Tylenol] 325 mg capsule 650 mg PO QID PRN (Reason: fever or pain) Qty: 30 0RF cephalexin 500 mg capsule 500 mg PO QID Qty: 28 0RF benzonatate 100 mg capsule 100 mg PO TID Qty: 14 0RF albuterol sulfate [Ventolin HFA] 90 mcg/actuation HFA aerosol inhaler 2 puff inhalation Q6H PRN (Reason: shortness of breath or wheezing) Qty: 8.5 0RF albuterol sulfate 90 mcg/actuation HFA aerosol inhaler 2 puff INH Q6H PRN (Reason: cough / wheezing ) Qty: 6.7 0RF Rx Instructions: administer with spacer (DME) Aerochamber MV Spacer See Dose Instructions .ROUTE .MEDSUPPLY Qty: 1 0RF Dose Instruction: As directed Rx Instructions: As directed hydroxyzine HCl 25 mg tablet 25 mg PO BID PRN (Reason: anxiety) Qty: 14 0RF Rx Instructions: do not take medications and drive hydrochlorothiazide 25 mg Tablet 25 mg PO QDAY loratadine 10 mg Tablet 10 mg PO QDAY doxycycline hyclate 100 mg capsule 100 mg PO BID Qty: 14 0RF Referrals: No Primary/Family,Physician [Primary Care Provider] - In 1 week Problem List Clinical Impression: Influenza Patient/Caregiver Discharge Instructions Education Materials: ED Influenza (Adult) Additional Instructions: Take the antiviral medications as prescribed and complete the course even though you may be feeling better. Drink plenty of fluids. Follow-up with your primary care physician in 24 to 48 hours. Return to the ED for any new or worsening symptoms. Print Language: Tristanian Stand Alone Forms: [employer] Patient Portal Info Letter PA/ROUNDHOUSE WORKER Supervising Physician PA/ROUNDHOUSE WORKER Supervising Physician: Dr. Redding
[2025-02-25] MEDS: ALBUTEROL/IPRATROPIUM (Duoneb) RT SOL 3 ML NEBU INH (18:31)
[2025-02-25 18:40] VITALS: PULSE 73; RESP 18; O2SAT 100
[2025-02-25 20:11] LABS: COVID-19 Antigen (In-House) Negative (Negative)
[2025-02-25 20:29] VITALS: BP 147/78; PULSE 78; RESP 18; TEMP 37.2; O2SAT 98
== END 2025-02-25 20:30 | disposition home or self-care (01) ==
PROVIDERS: Physician Assistant; Emergency Provider Family Medicine
DX: J10.1 Influenza due to other identified influenza virus with other respiratory manifestations (principal)
CPT/HCPCS: 87400; 87502; 87811; 94640; 99283; A9270